=== PATIENT | female | born 1975 | race Caucasian/White ===

== ENCOUNTER → 2017-02-22 | Outpatient (CLI) | payer OTHER ==
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
== END | disposition home or self-care (01) ==
LOC: RADUSWWP 10:16
PROVIDERS: ATTEND Family Medicine
DX: R60.0 Localized edema (principal)
CPT/HCPCS: 93970

== ENCOUNTER → 2017-03-15 | Outpatient (CLI) | payer OTHER ==
--- NOTE | 2017-03-15 10:18 | US ---
EXAMINATION TYPE: US abdomen complete DATE OF EXAM: 03/15/2017 COMPARISON: NONE CLINICAL HISTORY: R60.0 LOCALIZED EDEMA. Larger habitus, post monica, gen back and abd pain EXAM MEASUREMENTS: Liver Length: 16.5cm cm Gallbladder Wall: Surgically absent CBD: 0.6 cm Spleen: 10.7 cm Right Kidney: 11.4 x 4.9 x 5.6 cm Left Kidney: 10.6 x 4.6 x 5.0 cm Some exam limitations due to pt habitus and increased overlying bowel gas. Pancreas: tail gassed out, vis portions wnl Liver: some limitations, appears wnl Gallbladder: Surgically absent Evidence for sonographic Teran's sign: no CBD: wnl Spleen: wnl Right Kidney: wnl Left Kidney: seen with a 1.6 x 1.3 x 1.0 echogenic shadowing structure at the lower pole Upper IVC: wnl as seen Abd Aorta: wnl as seen Limited views of the pancreas are normal. The liver is normal in size without biliary dilatation. The gallbladder is been removed. Distal common hepatic duct measures 6 mm. The spleen is normal in size. Left kidney is normal. There is a 1.3 cm calculus in the lower pole on the right. This is nonobstruct ing. Visualized portions of aorta and IVC are normal. IMPRESSION: 1. NONOBSTRUCTING, 1.3 CM LOWER POLE CALCULUS ON THE RIGHT. 2. STATUS POST CHOLECYSTECTOMY.
--- NOTE | 2017-03-15 10:19 | US ---
EXAMINATION TYPE: US pelvis complete transvag DATE OF EXAM: 03/15/2017 COMPARISON: NONE CLINICAL HISTORY: R60.0 LOCALIZED EDEMA. General pelvic pain/pressure; gets Depo injections--hasn't h ad a cycle in a long time. TECHNIQUE: Transvaginal (TV) and Transabdominal (TA) EXAM MEASUREMENTS: Uterus: 6.9 x 3.6 x 4.7 cm Endometrial Stripe: 0.6 cm Right Ovary: 2.0 x 1.0 x 2.0 cm Left Ovary: 2.5 x 1.2 x 2.0 cm TV added to better visualize the pelvic organs. 1. Uterus: retroflexed some limitations; wnl as seen 2. Endometrium: wnl 3. Right Ovary: wnl 4. Left Ovary: wnl 5. Bilateral Adnexa: wnl 6. Posterior cul-de-sac: no free fluid seen IMPRESSION: NORMAL PELVIC ULTRASOUND.
--- NOTE | 2017-03-15 11:50 | ECHOF ---
Referral Reason:R60.0 localized edema MEASUREMENTS -------- HEIGHT: 160.0 cm WEIGHT: 95.3 kg BP: RVIDd: 2.6 cm (< 3.3) IVSd: 1.1 cm (0.6 - 1.1) LVIDd: 4.6 cm (3.9 - 5.3) LVPWd: 0.9 cm (0.6 - 1.1) IVSs: 1.5 cm LVIDs: 3.3 cm LVPWs: 1.2 cm LA Diam: 3.3 cm (2.7 - 3.8) LAESV Index (A-L): 16.77 ml/m Ao Diam: 2.9 cm (2.0 - 3.7) AV Cusp: 1.9 cm (1.5 - 2.6) LA Diam: 3.4 cm (2.7 - 3.8) MV EXCURSION: 15.271 mm (> 18.000) MV EF SLOPE: 112 mm/s (70 - 150) EPSS: 0.7 cm MV E Bowen: 0.66 m/s MV DecT: 238 ms MV A Bowen: 0.67 m/s MV E/A Ratio: 0.98 RAP: 5.00 mmHg RVSP: 19.61 mmHg FINDINGS -------- Sinus rhythm. This was a technically adequate study. LV size, wall thickness and systolic function are normal, with an EF greater than 55%. The right ventricle is normal in size. The right atrial size is normal. The aortic valve is trileaflet, and appears structurally normal. No aortic stenosis or regurgitation. The aortic valve is trileaflet and appears structurally normal. Mild mitral regurgitation is present. Mild tricuspid regurgitation present. There is no evidence of pulmonary hypertension. The right ventricular systolic pressure, as measured by Doppler, is 19.61mmHg. There is no pulmonic regurgitation present. The aortic root size is normal. There is no pericardial effusion. CONCLUSIONS -------- 1. LV size, wall thickness and systolic function are normal, with an EF greater than 55%. 2. The aortic valve is trileaflet and appears structurally normal. 3. Mild mitral regurgitation is present. 4. Mild tricuspid regurgitation present. 5. There is no evidence of pulmonary hypertension. 6. The right ventricular systolic pressure, as measured by Doppler, is 19.61mmHg. FOLD SKIVER: Rosa Ball RDCS
== END | disposition home or self-care (01) ==
LOC: RADECHMAIN 08:16
PROVIDERS: ATTEND Family Medicine
DX: N20.0 Calculus of kidney (principal); Z90.49 Acquired absence of other specified parts of digestive tract
CPT/HCPCS: 76700; 76830; 76856; 93306

== ENCOUNTER 2017-11-14 15:54 | Emergency (ER) | payer OTHER ==
[2017-11-14] MEDS ORDERED: ALPRAZolam 0.5 MG TAB PO STA (16:37)
[2017-11-14 17:08] LABS: Basophils # (A) 0.1 k/uL (0-0.2); Basophils % (A) 0 %; Eosinophils # (A) 0.2 k/uL (0-0.7); Eosinophils % (A) 1 %; HGB 13.9 gm/dL (11.4-16.0); Lymphocytes # (A) 2.9 k/uL (1.0-4.8); Lymphocytes % (A) 21 %; MCH 30.1 pg (25.0-35.0); MCV 88.6 fL (80.0-100.0); Mean Platelet Volume 7.9; Monocytes # (A) 0.5 k/uL (0-1.0); Monocytes % (A) 3 %; Neutrophils # (A) 10.3 k/uL (1.3-7.7); Neutrophils % (A) 74 %; Platelet Count 311 k/uL (150-450); RBC 4.62 m/uL (3.80-5.40); RDW 14.7 % (11.5-15.5)
[2017-11-14 17:25] LABS: ALT 68 U/L (9-52); AST 33 U/L (14-36); Acetaminophen <10.0 ug/mL; Albumin 3.8 g/dL (3.5-5.0); Alkaline Phosphatase 119 U/L (38-126); Anion Gap 9 mmol/L; Blood Urea Nitrogen 25 mg/dL (7-17); Calcium 9.5 mg/dL (8.4-10.2); Carbon Dioxide 27 mmol/L (22-30); Chloride 108 mmol/L (98-107); Glucose 85 mg/dL (74-99); Potassium 4.4 mmol/L (3.5-5.1); Salicylate <1.0 mg/dL; Sodium 144 mmol/L (137-145); Total Bilirubin 0.4 mg/dL (0.2-1.3); Total Protein 6.6 g/dL (6.3-8.2)
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
[2017-11-14 17:44] LABS: Appearance,Urine Cloudy (Clear); Bilirubin,Urine Negative (Negative); Blood,Urine Negative (Negative); Color,Urine Yellow; Glucose,Urine (UA) Negative (Negative); Ketones,Urine Negative (Negative); Leukocyte Esterase,Urine Trace (Negative); Mucus,Urine Occasional /hpf; Nitrite,Urine Negative (Negative); Protein,Urine Trace (Negative); RBC,Urine 149 /hpf (0-5); Specific Gravity,Urine 1.031 (1.001-1.035); Squamous Epithelial Cell,Urine 2 /hpf (0-4); WBC,Urine 65 /hpf (0-5)
[2017-11-14 17:46] LABS: Amphetamine Screen,Urine Not Detected (NotDetected); Barbiturate Screen,Urine Not Detected (NotDetected); Benzodiazepines Screen,Urine Detected (NotDetected); Cocaine Screen,Urine Not Detected (NotDetected); Methadone Screen, Urine Not Detected (NotDetected); Opiate Screen,Urine Detected (NotDetected); Oxycodone Screen, Urine Not Detected (NotDetected); Phencyclidine Screen,Urine Not Detected (NotDetected); Tricyclic Antidepressant,Urine Detected (NotDetected); Urn Cannabinoid Scrn Detected (NotDetected)
[2017-11-14 17:47] LABS: Creatine Kinase MB 1.5 ng/mL (0.0-2.4); Troponin I <0.012 ng/mL (0.000-0.034)
[2017-11-14 19:51] VITALS: BP 127/83; PULSE 74; RESP 16; TEMP 98
== END 2017-11-14 19:58 | disposition home or self-care (01) ==
LOC: EC 15:54
DX: F41.9 Anxiety disorder, unspecified (principal); R07.89 Other chest pain; E07.9 Disorder of thyroid, unspecified; F31.9 Bipolar disorder, unspecified; F17.200 Nicotine dependence, unspecified, uncomplicated; Z79.899 Other long term (current) drug therapy; Z88.8 Allergy status to other drugs, medicaments and biological substances
CPT/HCPCS: 36415; 80053; 80306; 81001; 81025; 82075; 82553; 83520; 84484; 85025; 93005; 99284

== ENCOUNTER → 2021-03-23 | Outpatient (CLI) | payer OTHER | END | disposition home or self-care (01) | LOC: LABWHC1 15:26 | PROVIDERS: ATTEND Obstetrics & Gynecology | DX: Z20.822 Contact with and (suspected) exposure to COVID-19 (principal); N90.3 Dysplasia of vulva, unspecified | CPT/HCPCS: 87635; C9803 ==